=== PATIENT | male | born 1975 | race Caucasian/White ===

== ENCOUNTER 2017-08-29 16:01 | Inpatient (IN) | payer SELFPAY ==
[2017-08-29] VITALS (11 sets, daily range): BP systolic 70–100; BP diastolic 46–62
[~2017-08-29] VITALS: Ht 152.4 cm; Wt 66.7 kg
[~2017-08-29 16:01] MED LIST: EPINEPHRINE 0.1MG/ML (1:10,000) 10ML SYR ONE; ETOMIDATE 2MG/ML 10ML VIAL IV ONE; SODIUM BICARBONATE 7.5% 0.9 MEQ/ML 50ML SYR IV ONE; SUCCINYLCHOLINE CHLORIDE 200MG/10ML VIAL IV ONE
[2017-08-29] MEDS ORDERED: SODIUM CHLORIDE 0.9% 1,000 ML IV ONE (16:49)
[2017-08-29 17:22] LABS: HEMATOCRIT. 43.3 % (42.0-52.0); HEMOGLOBIN. 15.4 g/dL (14.0-18.0); MEAN CORPUSCULAR HEMOGLOBIN 33.8 pg (28.0-32.0); MEAN CORPUSCULAR VOLUME 95.4 fL (80.0-94.0); MEAN PLATELET VOLUME 11.4 fl (7.4-10.4); PLATELET 179 x1000/uL (130-400); RED BLOOD CELL COUNT 4.54 mill/uL (4.7-6.1); RED CELL DISTRIBUTION WIDTH 13.8 % (11.6-14.6)
[2017-08-29 17:23] LABS: CHLORIDE 76 mEq/L (98-107)
[2017-08-29 17:26] LABS: INR 1.4; PARTIAL THROMBOPLASTIN TIME 29.3 sec (23.4-31.0); PROTHROMBIN TIME 14.7 sec (9.4-11.6)
[2017-08-29 17:27] LABS: ETHANOL BLOOD < 10 mg/dL
[2017-08-29] MEDS ORDERED: METHYLPREDNISOLONE SOD SUCC 125 MG/2 ML VIAL IV STA (17:39)
[2017-08-29] MEDS ORDERED: IPRATROPIUM BROMIDE (0.02%) 0.5MG/2.5ML NEB HHN STA (17:39)
[2017-08-29] MEDS ORDERED: ALBUTEROL (0.083%) 2.5MG/3ML NEB HHN STA (17:39)
[2017-08-29] MEDS ORDERED: MAGNESIUM 2 G PREMIX 50 ML IV ONE (17:45)
[2017-08-29] MEDS ORDERED: KCL 20MEQ/100ML PREMIX 100 ML IV ONE (17:45)
[2017-08-29] MEDS ORDERED: ASPIRIN 81MG TABLET ONE ×2 (18:08→18:15)
[2017-08-29 18:10] LABS: PLATELET ESTIMATE NORMAL
[2017-08-29] MEDS ORDERED: SUCCINYLCHOLINE CHLORIDE 200MG/10ML VIAL IV ONE (18:45)
[2017-08-29] MEDS ORDERED: PIPERACILLIN/TAZ 3.375G PREMIX 50 ML IV ONE (18:45)
[2017-08-29] MEDS ORDERED: PROPOFOL 10MG/ML 100ML 100 ML IV ONE (18:45)
[2017-08-29] MEDS ORDERED: VANCOMYCIN 1 G PREMIX 200 ML IV ONE (18:45)
[2017-08-29] MEDS ORDERED: NOREPINEPHRINE 4 MG in DEXT 5% WATER 250 ML IV STA (19:33)
[2017-08-29] MEDS ORDERED: SODIUM CHLORIDE 0.9% 1000ML BAG (SEPSIS BOLUS) IV ONE (19:45)
[2017-08-29] MEDS ORDERED: MIDAZOLAM HCL 50 MG in DEXTROSE 5% WATER 40 ML IV ONE (19:45)
[2017-08-29 20:12] LABS: BG BASE EXCESS -18.4 mmol/L (-2.0-2.0); BG CARBOXYHEMOGLOBIN 0.2 % (0.5-1.5); BG DEOXYHEMOGLOBIN 26.9 % (0.0-5.0); BG FRACTION INSPIRED OXYGEN 100; BG HCO3 ACT 15.2 mmol/L (22.0-26.0); BG METHEMOGLOBIN 0.4 % (0.0-1.5); BG OXYGEN SATURATION 72.9 % (92.0-98.5); BG OXYHEMOGLOBIN 72.5 % (94.0-97.0); BG PCO2 73.4 mmHg (35.0-45.0); BG PH 6.935 (7.350-7.450); BG SAMPLE SITE RIGHT FEMORAL; BG TIDAL VOLUME(mL) 500 mL; BG TOTAL HEMOGLOBIN 15.6 g/dL (12.0-18.0); BG VENT MODE VENT - A/C; BG VENT RATE 14 set
[2017-08-29] MEDS ORDERED: NOREPINEPHRINE 4 MG in DEXT 5% WATER 250 ML IV PRN (20:15)
[2017-08-29] MEDS ORDERED: KCL 20MEQ/100ML PREMIX 100 ML IV SCH (20:15)
[2017-08-29] MEDS ORDERED: SODIUM BICARBONATE 8.4% 1 MEQ/ML 50ML SYR IV ONE ×2 (20:30)
[2017-08-29] MEDS ORDERED: SODIUM BICARBONATE 150 MEQ in DEXTROSE 5% WATER 1,000 ML IV SCH (20:30)
[2017-08-29] MEDS ORDERED: ENOXAPARIN 60MG/0.6ML SYR SUBCUT SCH (21:00)
[2017-08-29 21:26] LABS: CHLORIDE 81 mEq/L (98-107)
[2017-08-29] MEDS ORDERED: DEXT 5%/0.45% NACL 1000ML 1,000 ML IV SCH (23:15)
[2017-08-29 23:32] LABS: HEMOGLOBIN. 14.4 g/dL (14.0-18.0); MEAN CORPUSCULAR HEMOGLOBIN 33.8 pg (28.0-32.0); MEAN CORPUSCULAR VOLUME 100.9 fL (80.0-94.0); MEAN PLATELET VOLUME 11.8 fl (7.4-10.4); PLATELET 185 x1000/uL (130-400); RED BLOOD CELL COUNT 4.26 mill/uL (4.7-6.1); RED CELL DISTRIBUTION WIDTH 14.1 % (11.6-14.6)
[2017-08-29] MEDS ORDERED: POTASSIUM CHLORIDE IV ONE (23:45)
[2017-08-29] MEDS ORDERED: DEXT 5% IV ONE (23:45)
[2017-08-29] MEDS ORDERED: WATER IV ONE (23:45)
[2017-08-30] VITALS (98 sets, daily range): BP systolic 45–132; BP diastolic 23–66
[2017-08-30] MEDS ORDERED: VANCOMYCIN 1250MG in DEXTROSE 5% WATER 250ML IV SCH ×2
[2017-08-30 00:05] LABS: PLATELET ESTIMATE NORMAL
[2017-08-30] MEDS: NOREPINEPHRINE 16 MG in DEXT 5% WATER 484 ML IV PRN ×2 (00:26→09:01)
[2017-08-30] MEDS: PIPERACILLIN/TAZ 3.375G PREMIX 50 ML IV SCH ×4 (00:27→21:29)
[2017-08-30] MEDS ORDERED: SODIUM BICARBONATE 8.4% 1 MEQ/ML 50ML SYR IV SCH (00:28)
[2017-08-30] MEDS ORDERED: FUROSEMIDE 40MG/4ML VIAL IVP SCH (00:29)
[2017-08-30] MEDS ORDERED: MIDAZOLAM HCL 50 MG in DEXTROSE 5% WATER 40 ML IV PRN (01:00)
[2017-08-30] MEDS ORDERED: PHENYLEPHRINE 20 MG in DEXT 5% WATER 248 ML IV PRN (01:00)
[2017-08-30] MEDS: KCL 20MEQ/100ML PREMIX 100 ML IV SCH ×4 (01:37→04:14)
[2017-08-30] MEDS ORDERED: PHENYLEPHRINE 40 MG in DEXT 5% WATER 246 ML IV PRN ×2 (04:45→14:45)
[2017-08-30] MEDS ORDERED: WATER IV PRN (05:00)
[2017-08-30] MEDS ORDERED: PHENYLEPHRINE IV PRN (05:00)
[2017-08-30] MEDS ORDERED: DEXT 5% IV PRN (05:00)
[2017-08-30] MEDS: PHENYLEPHRINE 40 MG in DEXT 5% WATER 496 ML IV PRN ×3 (05:26→13:00)
[2017-08-30] MEDS: METHYLPREDNISOLONE SOD SUCC 125 MG/2 ML VIAL IV SCH ×3 (06:33→21:28)
[2017-08-30 07:13] LABS: HEMATOCRIT. 47.1 % (42.0-52.0); HEMOGLOBIN. 15.5 g/dL (14.0-18.0); MEAN CORPUSCULAR HEMOGLOBIN 33.8 pg (28.0-32.0); MEAN CORPUSCULAR VOLUME 103.1 fL (80.0-94.0); MEAN PLATELET VOLUME 12.1 fl (7.4-10.4); PLATELET 191 x1000/uL (130-400); RED BLOOD CELL COUNT 4.57 mill/uL (4.7-6.1); RED CELL DISTRIBUTION WIDTH 14.2 % (11.6-14.6)
[2017-08-30 07:28] LABS: BG BASE EXCESS -18.2 mmol/L (-2.0-2.0); BG CARBOXYHEMOGLOBIN 0.8 % (0.5-1.5); BG DEOXYHEMOGLOBIN 33.9 % (0.0-5.0); BG METHEMOGLOBIN 0.3 % (0.0-1.5); BG OXYGEN SATURATION 65.7 % (92.0-98.5); BG PCO2 51.4 mmHg (35.0-45.0); BG PH 7.021 (7.350-7.450); BG PO2 42.1 mmHg (75.0-100.0); BG SAMPLE SITE RIGHT RADIAL; BG TIDAL VOLUME(mL) 500 mL; BG TOTAL HEMOGLOBIN 16.1 g/dL (12.0-18.0); BG VENT MODE VENT - A/C; BG VENT RATE 20 set
[2017-08-30] MEDS ORDERED: SODIUM BICARBONATE 8.4% 1 MEQ/ML 50ML SYR IV NR ×4 (08:10→13:45)
[2017-08-30 08:51] LABS: PHOSPHORUS 8.7 mg/dL (2.5-4.9)
[2017-08-30] MEDS ORDERED: PANTOPRAZOLE SODIUM 40 MG/VIAL IV SCH (09:00)
[2017-08-30] MEDS ORDERED: SODIUM BICARBONATE 8.4% 1 MEQ/ML 50ML SYR IV ONE ×2 (09:48→09:58)
[2017-08-30] MEDS ORDERED: DEXTROSE 50% WATER 50ML SYRINGE IV PRN (10:00)
[2017-08-30 10:25] LABS: BG BASE EXCESS -10.9 mmol/L (-2.0-2.0); BG CARBOXYHEMOGLOBIN 0.9 % (0.5-1.5); BG DEOXYHEMOGLOBIN 33.5 % (0.0-5.0); BG HCO3 ACT 19.2 mmol/L (22.0-26.0); BG METHEMOGLOBIN 0.4 % (0.0-1.5); BG OXYGEN SATURATION 66.1 % (92.0-98.5); BG OXYHEMOGLOBIN 65.2 % (94.0-97.0); BG PCO2 60.1 mmHg (35.0-45.0); BG PH 7.122 (7.350-7.450); BG PO2 37.1 mmHg (75.0-100.0); BG SAMPLE SITE RIGHT RADIAL; BG TIDAL VOLUME(mL) 500 mL; BG TOTAL HEMOGLOBIN 15.3 g/dL (12.0-18.0); BG VENT MODE VENT - A/C; BG VENT RATE 26 set
[2017-08-30] MEDS: VASOPRESSIN 10 UNIT in SODIUM CHLORIDE 0.9% 99.5 ML IV PRN ×3 (10:43→19:39)
[2017-08-30] MEDS ORDERED: KCL 20MEQ/100ML PREMIX 100 ML IV NR (11:00)
[2017-08-30] MEDS: DOPAMINE 400MG PREMIX 250 ML IV SCH ×2 (11:10→19:48)
[2017-08-30 11:41] LABS: PLATELET ESTIMATE NORMAL
[2017-08-30] MEDS ORDERED: DOBUTAMINE HCL 500 MG in DEXT 5% WATER 210 ML IV SCH (11:45)
[2017-08-30] MEDS ORDERED: VANCOMYCIN 1 G PREMIX 200 ML IV SCH ×2 (12:00→18:00)
[2017-08-30] MEDS: BLOOD SUGAR DIAGNOSTIC STRIP TEST SCH ×2 (12:50→17:45)
[2017-08-30 13:08] LABS: BG BASE EXCESS -18.1 mmol/L (-2.0-2.0); BG CARBOXYHEMOGLOBIN 0.8 % (0.5-1.5); BG DEOXYHEMOGLOBIN 30.6 % (0.0-5.0); BG HCO3 ACT 12.8 mmol/L (22.0-26.0); BG METHEMOGLOBIN 0.2 % (0.0-1.5); BG OXYGEN SATURATION 69.1 % (92.0-98.5); BG OXYHEMOGLOBIN 68.4 % (94.0-97.0); BG PCO2 49.8 mmHg (35.0-45.0); BG PH 7.028 (7.350-7.450); BG PO2 39.8 mmHg (75.0-100.0); BG SAMPLE SITE LEFT RADIAL; BG TIDAL VOLUME(mL) 550 mL; BG TOTAL HEMOGLOBIN 15.9 g/dL (12.0-18.0); BG VENT MODE VENT - A/C; BG VENT RATE 30 set
[2017-08-30] MEDS: INSULIN LISPRO 100 UNITS/ML SUBCUT SCH ×2 (13:56→18:02)
[2017-08-30] MEDS ORDERED: SODIUM BICARBONATE 150 MEQ in DEXTROSE 5% WATER 1,000 ML IV SCH (14:00)
[2017-08-30] MEDS ORDERED: ALBUMIN HUMAN 25GM/100ML (25%) IV NR (14:15)
[2017-08-30] MEDS ORDERED: NOREPINEPHRINE 32 MG in DEXT 5% WATER 468 ML IV PRN (14:45)
[2017-08-30] MEDS ORDERED: FUROSEMIDE 40MG/4ML VIAL IVP NR (15:00)
[2017-08-30] MEDS ORDERED: DOXYCYCLINE 100 MG in DEXT 5% WATER 100 ML IV SCH (17:00)
[2017-08-30] MEDS ORDERED: SULFAMETHOXAZOLE/TRIMETHOPRIM 800/160MG TABLET PO SCH (18:00)
[2017-08-30] MEDS ORDERED: PHENYLEPHRINE 80 MG in DEXT 5% WATER 492 ML IV PRN (19:00)
[2017-08-30 20:04] LABS: INR 2.9; PROTHROMBIN TIME 29.8 sec (9.4-11.6)
[2017-09-01 08:13] LABS: HIV SCREEN 4G Non Reactive (Non Reactive)
== END 2017-08-30 22:58 | disposition expired | DRG 720 ==
LOC: ER 16:01 → CVICU 19:02 → EDBEDREQTM 19:08 → EDBEDREQ 19:08 → ENRESERV 20:45
PROVIDERS: ADMIT Internal Medicine; ATTEND Internal Medicine
PROC: 0BH17EZ Insertion of Endotracheal Airway into Trachea, Via Natural or Artificial Opening (ICD-10-PCS; principal; 2017-08-29)
PROC: 5A12012 Performance of Cardiac Output, Single, Manual (ICD-10-PCS; 2017-08-29)
PROC: 5A1945Z Respiratory Ventilation, 24-96 Consecutive Hours (ICD-10-PCS; 2017-08-29)
PROC: 05HY33Z Insertion of Infusion Device into Upper Vein, Percutaneous Approach (ICD-10-PCS; 2017-08-29)
PROC: 5A09357 Assistance with Respiratory Ventilation, Less than 24 Consecutive Hours, Continuous Positive Airway Pressure (ICD-10-PCS; 2017-08-29)
DX: A41.9 Sepsis, unspecified organism (principal); I21.4 Non-ST elevation (NSTEMI) myocardial infarction; N17.0 Acute kidney failure with tubular necrosis; I49.01 Ventricular fibrillation; J96.01 Acute respiratory failure with hypoxia; J96.02 Acute respiratory failure with hypercapnia; E43 Unspecified severe protein-calorie malnutrition; J18.9 Pneumonia, unspecified organism; E87.1 Hypo-osmolality and hyponatremia; D68.9 Coagulation defect, unspecified; Z66 Do not resuscitate; R17 Unspecified jaundice; E87.4 Mixed disorder of acid-base balance; E87.8 Other disorders of electrolyte and fluid balance, not elsewhere classified; E83.51 Hypocalcemia; E87.6 Hypokalemia; F17.290 Nicotine dependence, other tobacco product, uncomplicated; F41.9 Anxiety disorder, unspecified; R73.9 Hyperglycemia, unspecified; N18.9 Chronic kidney disease, unspecified; R65.21 Severe sepsis with septic shock; I50.40 Unspecified combined systolic (congestive) and diastolic (congestive) heart failure; Z72.89 Other problems related to lifestyle; Z68.28 Body mass index [BMI] 28.0-28.9, adult
CPT/HCPCS: 31500; 36415; 36556; 36600; 51702; 71045; 80048; 80053; 82375; 82805; 82962; 83036; 83605; 83690; 83735; 83880; 84100; 84443; 84478; 84484; 85025; 85610; 85730; 87040; 87070; 87186; 92950; 92960; 93005; 93306; 93970; 94002; 94003; 96365; 96367; 96368; 96372; 96375; 96376; 99291; C9113; G0482; J0330; J1250; J1265; J1650; J1815; J1940; J2250; J2370; J2543; J2704; J2930; J3370; J3475; J3480; J3490; J7030; J7040; J7050; J7060; J7070; P9047